=== PATIENT | female | born 1980 | race Caucasian/White ===

== ENCOUNTER → 2017-08-12 | Outpatient (CLI) | payer OTHER ==
[~2017-08-12] MED LIST: ALBUTEROL SULF8.5 GM IH; AMOXICILLIN875 MG PO; ANAPROX DS550 M1 PO; ATARAX,VISTARIL25 MG PO; FIORICET,ESG1 TABLET PO; FLEXERIL10 MG PO; MOTRIN800 MG PO; NOHOMEMEDS; NON-ASPIRIN325 MG PO; PREDNISONE20 MG PO; PROAIR HFA8.5 GM IH; PROZAC40 MG PO; ROBITUSSIN AC,T10 ML PO; TEGRETOL200 MG PO; VICODIN,LORT1 TABLET PO
== END | disposition home or self-care (01) ==
LOC: CDC
DX: F31.9 Bipolar disorder, unspecified (principal)
CPT/HCPCS: 93000